=== PATIENT | male | born 1980 | race Caucasian/White ===

== ENCOUNTER 2016-12-08 14:34 | Emergency (ER) | payer OTHER ==
[~2016-12-08] VITALS: Ht 182.9 cm; Wt 87.6 kg
[2016-12-08 14:41] VITALS: Ht 182.9 cm; Wt 87.6 kg
[2016-12-08] MEDS ORDERED: CITA20TA9 PO (14:50)
[2016-12-08] MEDS ORDERED: ACET-1256 PO (14:56)
[2016-12-08] MEDS ORDERED: IBUP-1450 PO (14:56)
[2016-12-08] MEDS ORDERED: SODIUM CHLORIDE 0.9% 1000ML 1,000 ML IV ONE (15:15)
[2016-12-08] MEDS ORDERED: KETOROLAC TROMETHAMINE 30 MG/ML VIAL IV STA (15:15)
[2016-12-08 15:33] LABS: BASO % 0.2 %; BASO ABS # 0.01 K/uL (0-0.2); COMPLETE YES; EOS % 11.6 %; HEMATOCRIT 45.5 % (42-52); IG% 0.2 %; LYMPH % 4.4 %; LYMPH ABS # 0.22 K/uL (1.2-3.4); MEAN CELL VOLUME 88.9 fL (80-100); MEAN CORPUSCULAR HEMOGLOBIN 31.4 pg (25-34); MEAN CORPUSCULAR HGB CONC 35.4 g/dl (32-36); MEAN PLATELET VOLUME 9.9 fL (7.4-10.4); MONO % 8.6 %; PLATELET COUNT 141 K/uL (130-400); RED BLOOD COUNT 5.12 M/uL (4.7-6.1)
[2016-12-08 15:55] LABS: BUN/CREATININE RATIO 8.6 (10-20); CREATININE 1.6 mg/dl (0.60-1.40); POTASSIUM 4.2 mmol/L (3.5-5.1)
[2016-12-08 16:35] LABS: LYME DISEASE AB IGG NEG (NEG); LYME DISEASE AB IGM NEG (NEG)
[2016-12-08] MEDS ORDERED: ACETAMINOPHEN 500 MG TAB PO STA (16:38)
[2016-12-08] MEDS ORDERED: MoRPHine SULFATE 10 MG/ML CARP/VIAL IV STA (16:38)
--- NOTE | 2016-12-08 17:22 | DIAGNOSTIC IMAGING REPORT ---
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 Comparison: None. Findings: The paranasal sinuses and mastoid air cells are clear. Mild mucosal thickening of the ethmoid sinuses. The calvarium and skull base are intact. The ventricles and sulci are within normal limits. There is no mass, hematoma, midline shift, or acute infarct. Impression: No acute intracranial abnormality. Note is made of mild mucosal thickening of the ethmoid sinuses. Electronically signed by: Tadeo Vegas M.D. 12/08/2016 5:21 PM Dictated Date/Time: 12/08/2016 5:20 PM
--- NOTE | 2016-12-08 18:45 | EMERGENCY ROOM VISIT NOTE ---
ED Visit Note First contact with patient: 16:47 This Patient was discussed with the physician assistant department manager, Rd Toledo PA-C. The pertinent historical and physical exam findings were confirmed. I agree with the studies ordered and with the interpretations of these studies. I agree with the disposition and care plan. Lumbar Puncture Indication: Headache. Verbal consent was obtained after the risks and benefits were explained, including but not limited to headache, bleeding/clotting, scarring, infection, pain, and bone/joint/nerve damage. At this time, the risks of the procedure are less than the risks of NOT performing the procedure. A time out was taken and the correct patient and site identified. The patient was placed in the seated position and the back was prepped with betadine and draped in the standard fashion. The L3 intervertebral space was identified, anesthetized locally with 1 % lidocaine without epinephrine, and the spinal needle was inserted through the skin with the bevel parallel to the dural fibers. The needle was carefully advanced into the lumbar cistern and 4 tubes of initially bloody then clear CSF was obtained. The stylet was replaced and the needle was removed. A bandaid was placed and the patient was placed in the supine position. The patient tolerated the procedure well and there were no complications.
[2016-12-08 19:12] LABS: CSF TOTAL PROTEIN 40.1 mg/dl (15.0-45.0)
[2016-12-08 19:18] LABS: CSF APPEARANCE CLEAR; CSF COLOR COLORLESS; CSF XANTHOCHROMIC NO XANTHOCHROMIA
[2016-12-08 19:22] LABS: CSF CHEMISTRY TUBE # 2
[2016-12-08 19:56] LABS: CSF APPEARANCE HAZY; CSF COLOR PINK; CSF XANTHOCHROMIC NO XANTHOCHROMIA
[2016-12-08] MEDS ORDERED: HYDR-5688 PO ×3 (20:41→20:49)
[2016-12-08] MEDS ORDERED: DOXY100C2 PO (20:41)
[2016-12-08] MEDS ORDERED: NORCO 5/325MG HOME PACK PO ONE (20:45)
[2016-12-08] MEDS ORDERED: DOXYCYCLINE HYCLATE 100 MG CAP PO ONE (21:00)
[2016-12-08 21:08] VITALS: BP 110/67; PULSE 75; TEMP 36.9; O2SAT 94
--- NOTE | 2016-12-08 22:49 | EMERGENCY ROOM VISIT NOTE ---
ED Visit Note First contact with patient: 14:50 CHIEF COMPLAINT: Headache, chills and body aches. HISTORY OF PRESENT ILLNESS: Mr. Cade is a 36 year-old white male who ambulates into the ED complaining of global headache, fevers and body aches. Historically patient reports he has had chronic headaches for many years but has never been evaluated for his headaches. His current headache is not the worst headache of his life for similar to his previous. Patient reports approximately 3 weeks ago he was working on building a house and felt like he was a bit by some type of insect and noted a small red area of erythema on the lateral aspect of his right thigh. For approximately one and a half weeks patient reports the lesion continued to get larger and then spontaneously ruptured and drained a small amount of pus out of the area. He was seen at a local urgent care center and was started on Bactrim and followed up with his primary care physician approximately 7 days ago. He did feel like the lesion was getting better and had not seen any additional drainage from the wound and there has been no red streaking or fevers. Patient reports 3 days ago he started developing a global headache. Initially it was mild and has gradually increased in intensity. He describes his discomfort as a throbbing sensation. He currently rates his discomfort 6/10. The pain is nonradiating. He has not identified any aggravating or alleviating factors related to the pain. He has taken intermittent doses of ibuprofen without relief of his discomfort. Associated with his pain he reports over the last 2 days he has been having chills, sensations of fevers, body ache naris and today he developed stiffness over the lateral cervical trapezius muscles bilaterally. He denies other skin eruptions, other skin color changes, dizziness, lightheadedness, recent head trauma, visual changes, hearing changes, difficulty speaking, difficulty swallowing, difficulty ambulating/coordinating body movements, upper respiratory tract symptoms, sinus infections, sore throats , voice changes, cough, wheezing, nausea, vomiting, chest pain, shortness of breath, abdominal pain, nausea/vomiting, extremity weakness/numbness/tingling. REVIEW OF SYSTEMS: All body systems were reviewed with the patient and found to be negative unless noted above otherwise. PAST MEDICAL HISTORY: As previously noted, unspecified sinus, finger and hernia surgeries. CURRENT MEDICATIONS: Citalopram. ALLERGIES TO MEDICATIONS: Penicillins. SOCIAL HISTORY: Patient is currently employed; he lives with his and children and feels safe in his home environment; he admits to tobacco and alcohol use. PHYSICAL EXAM: Vital Signs: Date Time Temp Pulse Resp B/P Pulse Ox O2 Delivery O2 Flow Rate FiO2 12/08/16 21:08 36.9 75 18 110/67 94 12/08/16 19:01 36.9 75 18 110/67 94 Room Air 12/08/16 17:28 37.1 102 18 113/76 96 Room Air 12/08/16 16:18 39.3 103 18 129/78 94 Room Air 12/08/16 14:41 38.6 102 20 125/71 95 Room Air GENERAL: 36 year-old white male in moderate distress due to symptoms, febrile and hemodynamically stable. NEUROLOGIC: Awake, alert and oriented to person place and time. Answering questions appropriately and following commands. Cranial nerves II-XII grossly intact. Normal gait. No focal neurologic deficits noted. SKIN: Warm, dry and pink. No soft tissue trauma. Over the lateral aspect of the upper thigh patient has a 4-5 cm round erythematous lesion; this lesion is scaly. It is indurated but not fluctuant and appears to me as a possible healing abscess. Dr. Ferraro felt it could appear as Lyme's disease rash. HEENT: Normocephalic, atraumatic. PERRLA. EOMI without nystagmus. Sclera anicteric. External ears are nontender. Auditory canals are pink and patent. Tympanic membranes are pearly roche with normal light reflex. No erythema or tenderness over the frontal or maxillary sinuses. Funduscopic examination shows a normal-appearing optic disc with no signs of increased intracranial pressure. Oral cavity is moist and pink. Airway is patent. Speech is normal. Uvula is midline and no abscesses are seen. No posterior pharyngeal erythema or edema. No carotid bruits. No JVD. Trachea midline. BACK: No tenderness over the bony cervical, thoracic and lumbar spines. Full range of motion of the cervical spine. Moderate tenderness over the inferior portion of the cervical trapezius muscles without spasm. Negative meningismus. No CVA tenderness. THORAX: Lungs clear to auscultation and equal bilaterally with no wheezing, crackles, rhonchi or stridor and equal chest wall movements. HEART: Regular rate and rhythm with no murmurs, rubs or gallops. ABDOMEN: Soft and nontender with bowel sounds present in all quadrants; no rigidity, rebound tenderness, organomegaly or guarding. MUSCULOSKELETAL: Full range of motion of all joints without any significant discomfort and the gait is normal. ED COURSE: Patient is assessed as noted above. Laboratory Testing: Test 12/08/16 15:20 12/08/16 18:38 Range/Units White Blood Count 5.00 4.8-10.8 K/uL Red Blood Count 5.12 4.7-6.1 M/uL Hemoglobin 16.1 14.0-18.0 g/dL Hematocrit 45.5 42-52 % Mean Corpuscular Volume 88.9 80-100 fL Mean Corpuscular Hemoglobin 31.4 25-34 pg Mean Corpuscular Hemoglobin Concent 35.4 32-36 g/dl Platelet Count 141 130-400 K/uL Mean Platelet Volume 9.9 7.4-10.4 fL Neutrophils (%) (Auto) 75.0 % Lymphocytes (%) (Auto) 4.4 % Monocytes (%) (Auto) 8.6 % Eosinophils (%) (Auto) 11.6 % Basophils (%) (Auto) 0.2 % Neutrophils # (Auto) 3.75 1.4-6.5 K/uL Lymphocytes # (Auto) 0.22 1.2-3.4 K/uL Monocytes # (Auto) 0.43 0.11-0.59 K/uL Eosinophils # (Auto) 0.58 0-0.5 K/uL Basophils # (Auto) 0.01 0-0.2 K/uL RDW Standard Deviation 44.7 36.4-46.3 fL RDW Coefficient of Variation 13.6 11.5-14.5 % Immature Granulocyte % (Auto) 0.2 % Immature Granulocyte # (Auto) 0.01 0.00-0.02 K/uL Sodium Level 136 136-145 mmol/L Potassium Level 4.2 3.5-5.1 mmol/L Chloride Level 103 98-107 mmol/L Carbon Dioxide Level 26 21-32 mmol/L Anion Gap 7.0 3-11 mmol/L Blood Urea Nitrogen 14 7-18 mg/dl Creatinine 1.60 0.60-1.40 mg/dl Est Creatinine Clear Calc Drug Dose 68.7 ml/min Estimated GFR () 62.4 Estimated GFR (Non- 53.9 BUN/Creatinine Ratio 8.6 10-20 Random Glucose 98 70-99 mg/dl Calcium Level 9.0 8.5-10.1 mg/dl Lyme Disease IgG Antibody NEG NEG Lyme Disease IgM Antibody NEG NEG CSF Color PINK CSF Appearance HAZY CSF WBC 4 0-5 /uL CSF RBC 6000 0 /uL CSF Xanthrochromic NO XANTHOCHROMIA CSF Cell Count Tube # 1 CSF Chemistry Tube # 2 CSF Glucose 52 40-70 mg/dl CSF Total Protein 40.1 15.0-45.0 mg/dl CSF Gram Stain: No white blood cells or organisms present. CSF Culture: Pending. Head CT: Was reviewed by myself and read by the radiologist showing no acute intracranial abnormalities or skull fractures. Mild sinus disease was noted. Patient was initially hydrated with normal saline and was given 30 mg of Toradol IV for his discomfort; he refused narcotics. On reassessment patient's fever was elevating and he was given 1 g of Tylenol by mouth and was ordered morphine and once again refused. Patient was reassessed multiple times during his stay in the emergency department. Patient's case was reviewed with Dr. Ferraro; because of his symptoms and his fever the patient was offered a lumbar puncture procedure and accepted. Dr. Ferraro to the lumbar puncture; please see his notes and orders on this procedure. Patient was once again reassessed and was afebrile and reported he was feeling better but still had a mild headache. Patient was educated about her condition and instructed on her treatment plan; she verbalized understanding and agreement with this plan. CLINICAL IMPRESSION: Acute headache. Fever. DECISION MAKIN-year-old male who presents for evaluation of headache and fever. He is well appearing, and hemodynamically stable and is febrile. He has no signs of a sinus , dental, or ear infection and no evidence of meningismus. Se is neurologically intact. He does have his skin eruption on the lateral aspect of the right thigh. Initially my differential diagnosis I considered subarachnoid hemorrhage, meningitis, cephalitis, mass lesion and other causes. DISPOSITION: Patient was discharged to home in stable condition; prior to departure he was reassessed and subjectively reported he was feeling much better and rated his discomfort 1/10. PLAN: Patient was prescribed doxycycline and narcotics for headache; he was educated on both of these medications and appropriate narcotic precautions were discussed with the patient. Additionally his name was run to the [place] database no red flags are noted. Patient was encouraged to follow-up with his family physician for recheck in 5- 7 days for repeat Lyme titer. Patient was encouraged return to the ED for return of severe headaches uncontrolled by medics and, return if fever, worsening skin infection, pain, redness in the area of the spinal tap or any new/concerning symptoms.
== END 2016-12-08 21:09 | disposition home or self-care (01) ==
LOC: C.EDB 14:38
DX: R51 Headache (principal); R50.9 Fever, unspecified